=== PATIENT | female | born 1955 | race Caucasian/White ===

== ENCOUNTER 2024-11-21 13:03 | Outpatient (AMB) | payer MEDICARE, SELFPAY ==
--- NOTE | 2024-11-21 13:08 | MHC.OFFVIS ---
Vital Signs 11/21/24 13:14 Weight 138 lb BP 140/60 H Blood Pressure Location Rt brachial Position Sitting Pulse 67 Pulse Source Pulse Oximeter Pulse Oximetry (%) 95 Oxygen Delivery Method Room Air Intake Visit Reasons: ENP-Alzheimer's dementia Intake Note: Patient referred by [facility] dementia [employer] Sales Representative Required: No Accompanied by: Self / Same As Patient Allergies Penicillins Allergy (Severe, Verified 11/21/24 13:08) Anaphylaxis diazepam Allergy (Unknown, Verified 11/21/24 13:08) Unknown HPI Comments Details: 69y/o female comes for further evaluation of cognition.she was diagnosed with Dementia/ cognitive disorder 5 years ago and has been on medications.she saw at that time . she is currently on memantine 21mg and galantamine. she came alone for her appointment today . she is not sure when her memory issues started. 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 she had trouble remembering and focusing . she retired 4 years ago. she reports worsening of her short term memory issues. she misplaces things frequently, has trouble with names etc. she lives alone and is independant. 2 uncles and 1 cousin is diagnosed with dementia No h/o head injury she mccormack sh/o sleep apnea but her last home sleep tets 2 years ago was normal. [facility] Medical History (Updated 11/21/24 @ 13:44 by Shy Rivera MD) Cognitive disorder Ascending aorta dilatation Migraine with aura and without status migrainosus Anxiety Hyperlipidemia Alzheimer dementia Syncope Restless leg syndrome Vitamin B12 deficiency (dietary) anemia Depression OLIVIA (obstructive sleep apnea) DJD (degenerative joint disease) of cervical spine Urgency incontinence Insomnia Dyspnea Surgical History Hx of cardiac cath Family History Mother Diabetes Lung cancer Sister CAD (coronary artery disease) Sister Diabetes Brother Diabetes Brother Asthma Paternal Grandmother CAD (coronary artery disease) Social History Alcohol intake: current Patient Tobacco Use Status: Former Tobacco user Use of substances other than those prescribed or required for medical reasons: No Physical Exam Vital Signs: Last Vital Signs Pulse 67 11/21/24 13:14 BP 140/60 H 11/21/24 13:14 Pulse Ox 95 11/21/24 13:14 Oxygen Delivery Method Room Air 11/21/24 13:14 Const General: cooperative, healthy appearing, comfortable and no acute distress Nutritional Appearance: average body habitus Orientation/consciousness: patient oriented x3 Eyes Pupils: Equal, round and reactive pupils present Neuro Other: fidgety ? gen chorea General: patient oriented x3, gait normal, tone normal, moves all extremities and no focal motor deficits Cranial nerves: Yes Facial sensation intact/muscles of mastication intact, Yes Equal, round and reactive pupils present, Yes Bilaterally intact EOM present, Yes Nystagmus not present, Yes Normal facial strength present, Yes Midline tongue present and Yes Ability to bilaterally elevate shoulders present Cognition (Neuro): normal cognition Gait exam (Neuro): Antalgic gait present Motor exam (neuro): 5/5 motor strength present throughout and Normal motor muscle tone present throughout Deep tendon reflexes (DTR's): Right triceps reflex intensity grade: 1+, Left triceps reflex intensity grade: 1+, Rt Biceps (C5, C6): 1+, Left biceps reflex intensity grade: 1+, Right brachioradialis reflex intensity grade: 1+, Left brachioradialis reflex intensity grade: 1+, Right patellar reflex intensity grade: 1+ and Left patellar reflex intensity grade: 1+ Coordination: [id number] test normal Orientation What is the (year) (season) (date) (day) (month)?: year, season, date, day and month Where are we (state) (county) (town or city) (hospital) (floor)?: state, town or city, hospital/clinic and floor Registration Name of 3 unrelated objects clearly and slowly, then ask patient to repeat all 3 of them. (1st repeat determines score. Make sure they can repeat all three): object 1, object 2 and object 3 Attention & Calculation (CHOOSE ONE) Spell WORLD backwards (DLROW): 4 letters Recall Ask patient to repeat the 3 items from question #3.: object 1 and object 2 Language Show patient a wristwatch & ask what it is. Repeat for pencil.: watch and pencil Ask the patient to repeat the phrase 'No ifs, ands, or buts' after you.: correct Ask the patient to 'take a piece of paper with their right hand' 'fold paper in half' 'place paper on floor': take paper in right hand, fold paper in half and place paper on floor Print the sentence 'CLOSE YOUR EYES' on a piece. If patient actually closes eyes then score.: followed written direction Give patient a blank piece of paper & ask to write a sentence. Score if it contains a noun & verb.: sentence contains subject and verb Score Score: 26 Assessment & Plan Assessment & Plan (1) Cognitive disorder: Comment: early dementia vs Mild cognitive impairment Code(s): F09 - Unspecified mental disorder due to known physiological condition Category: Medical Plan Neuropsych testing - report for review Increase memantine XR 28 mg qd Galantamine 8mg qd will monitor neuro symptoms Coding Level of Care Code New Pt Level 4 (68553) Complex EM visit Add On G2211 Diagnoses Cognitive disorder F09
[2024-11-21 13:14] VITALS: BP 140/60; PULSE 67; O2SAT 95
--- OUTSIDE RECORDS SUMMARY | 2024-11-21 13:14 | XMS_ITS ---
Author Name [place] Organization Unknown Encounters Encounter Type Encounter Reason Primary Diagnosis Location Date Ambulatory Contact with and (suspected) exposure to covid-19 [facility] 2021 Care Team Organization Name Specialty Phone Email Start Date End Da te [facility] ALEXX HERNANDEZ Primary Care 04/05/2023 12/11/2023 [facility] Termed, PROVIDER Primary Care 09/30/202211/22 [facility] PCP,No Primary Care 2021 12/11/2023 [facility] NO PCP Primary Care 2021 2021
--- OUTSIDE RECORDS SUMMARY | 2024-11-21 13:15 | XMS_ITS | Clinical Summary ---
Author Organization [address] [facility] Address [address] [place] [address] Phone Care Team Providers Care Neurological Physiotherapist Name Role Phone Merari Mccray MD Primary Care Provider [phone] Allergies Active Allergy Reactions Criticality Noted Date Comments Diazepam Other 09/23/2019 LOC/syncope Penicillins Anaphylaxis High 02/14/2019 Medications cholecalciferol, vitamin D3, (D3-50 CHOLECALCIFEROL ORAL) Take 1 tablet by mouth 1 (one) time each day. Active aspirin 81 mg EC tablet Take 1 tablet (81 mg total) by mouth 1 (one) time each day. 08/07/19 22 Active calcium carbonate-vitamin D3 600 mg-5 mcg (200 unit) per tablet Take 1 tablet by mouth 1 (one) time each day. Active meloxicam (MOBIC) 7.5 mg tablet Take 1 tablet (7.5 mg total) by mouth 1 (one) time each day. 10/20/19 24 Active omega-3 acid ethyl esters (LOVAZA) 1 gram capsule Take 4 capsules (4 g total) by mouth 1 (one) time each day. Active traZODone (DESYREL) 100 mg tabletIndications:A nxiety,Depression, unspecified depression type Take 1 tablet (100 mg total) by mouth at bedtime. 90 tablet 2 03/15/20 24 Active melatonin 10 mg capsule Take 1 capsule (10 mg total) by mouth at bedtime. 90 capsule 2 03/15/20 24 Active diazePAM (VALIUM) 2 mg tabletIndications:A nxiety Take 1 tablet (2 mg total) by mouth 3 (three) times a day if needed for anxiety, sedation or muscle spasms. Max Daily Amount: 6 mg 6 tablet 03/15/20 24 Active Additional Information Patient not taking.Reported on 08/08/2024 umeclidinium-vilant Antonio (Anoro Ellipta) 62.5-25 mcg/actuation inhaler Inhale 1 puff by mouth 1 (one) time each day. 1 each 12 08/14/19 25 026 Active furosemide (LASIX) 20 mg tablet TAKE 1 TABLET BY MOUTH 1 (ONE) TIME EACH DAY IF NEEDED FOR LEG SWELLING 90 tablet 09/12/19 25 Active wmaduof-ZTGX-izh-va ler-hops-lm [id number] mg capsule 20 mg. 10/06/19 19 Active albuterol HFA (PROAIR HFA ; PROVENTIL HFA ; VENTOLIN HFA) 90 mcg/actuation inhaler Inhale 2 puffs by mouth. 10/25/19 24 Active aspirin 81 mg tablet Take 81 mg by mouth. 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 90 capsule 2 09/20/19 25 Active magnesium oxide 250 mg magnesium tablet Take 1 tablet (250 mg total) by mouth 2 (two) times a day. 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 90 capsule 2 09/20/19 25 Active gabapentin (NEURONTIN) 100 mg capsuleIndications: Restless leg syndrome Take 2 capsules (200 mg total) by mouth 2 (two) times a day. 360 capsule 2 09/20/19 25 Active buPROPion XL (WELLBUTRIN XL) 150 mg 24 hr tabletIndications:D epression, unspecified depression type,Anxiety Take 1 tablet (150 mg total) by mouth 1 (one) time each day in the morning. 90 tablet 2 09/20/19 25 Active atorvastatin (LIPITOR) 20 mg tabletIndications:H yperlipidemia, unspecified hyperlipidemia type Take 1 tablet (20 mg total) by mouth 1 (one) time each day. 90 tablet 2 09/20/19 25 Active Active Problems Problem Noted Date Diagnosed Date Anxiety 02/08/2024 Hyperlipidemia 02/08/2024 Overview (02/08/2024): Last Assessment & Plan: Continue current atorvastatin 20 mg at bedtime Assessment & Plan (08/08/2024 10:07 AM EDT): Utilizing atorvastatin 20 mg p.o. daily. Migraine with aura 02/08/2024 Aortic insufficiency 09/22/2023 Overview (02/08/2024): See echocardiogram under ascending aortic aneurysm section Last Assessment & Plan: Exam inconsistent with significant aortic insufficiency. And recent echo showed only mild to moderate insufficiency. Will do full surveillance echoes every 4 to 5 years or with change in murmur or exam to evaluate AI but every 2 to 3 years we will assess the ascending aorta. Assessment & Plan (08/08/2024 10:07 AM EDT): Patient scheduled to have echocardiogram on August 2024. Dizziness 09/22/2023 Overview (02/08/2024): Last Assessment & Plan: Sounds more like vertigo or age-related gait instability than true lightheadedness. Continue to monitor for worsening symptoms. Consider use of ambulatory assistance aids. Degenerative TFCC tear, right 08/16/2023 Extensor carpi ulnaris tendinitis 08/16/2023 Dyspnea on exertion 11/07/2022 Overview (02/08/2024): - In follow-up, she has had a recent echocardiogram in September 2020 (based on my independent review of the images) showing upper normal left ventricular wall thickness, normal LV cavity size and systolic function, normal regional wall motion with ejection fraction of 60 to 65%, normal RV size and systolic function, mild left atrial enlargement, mild aortic insufficiency with a trileaflet aortic valve, mild MR, mild TR, normal pulmonary artery systolic pressure of 31 mmHg, dilated ascending aorta at 4.3 cm, aortic root at 3.8 cm-compared with echo from 09/02/2019, findings in my opinion are stable - She also ended up having an exercise stress test which was inconclusive because she only achieved 75% of max predicted heart rate on 05/25/2021 - She had a follow-up pharmacologic nuclear stress test on 07/07/2021 which showed normal perfusion but elevated TID ratio of 1.34 and evidence of three-vessel coronary calcification on low-dose CT images for attenuation correction -Cardiac cath in July 2021 showed normal LMCA with mild luminal irregularities of the LAD, left circumflex, and RCA, given these findings it indicates that the stress test was a false positive Last Assessment & Plan: At this point, given findings on recent CT scan, PFTs, and improvement in symptoms with albuterol, I suspect her symptoms are more likely pulmonary in nature given her prior smoking history. Furthermore she has had an extensive cardiac workup that has been unyielding. That said, she is going to be seeing her crime scene analyst soon. I recommended she mention to him that she is using her rescue inhaler frequently. There may be a bit of dementia and anxiety at play to however. This will be difficult to parse out. Assessment & Plan (08/08/2024 10:07 AM EDT): Patient reports that this chronic, has not been worsening. Is working with her crime scene analyst. Continue on current medication regiment. I did speak to patient about continuing to exercise and strengthening her muscles. Orders: ECG 12 lead Ascending aorta dilation ([facility] V24) 0 Overview (02/08/2024): -Most recent echocardiogram in January 2023 showing normal biventricular size and systolic function, normal left ventricular regional wall motion with an ejection fraction of 60 to 65%, trileaflet aortic valve with mild to moderate aortic insufficiency but no aortic stenosis, dilated ascending aorta at 4.3 cm and normal aortic root size-compared with prior echo from 2020, the AI was slightly more prominent on today's study but all other findings are unchanged including aortic size - CT of the chest without contrast in September 2021 showed the ascending aorta at 4.4 x 4.1 cm, mild centrilobular and paraseptal emphysema, prominent bilateral epicardial fat pads - Abdominal aortic ultrasound performed on 11/25/2022 did not show any evidence of abdominal aortic aneurysm but did show mild to moderate atherosclerotic plaquing of the abdominal aortic wall. Bilateral common iliac arteries are normal in size and flow velocity. Last Assessment & Plan: No recent growth on echocardiogram last year. At this point, we will space out surveillance imaging to every 2 years. Assessment & Plan (08/08/2024 10:07 AM EDT): Patient is scheduled to have an echocardiogram in August 2024. Orders: ECG 12 lead Insomnia 09/23/2019 Urgency incontinence 09/23/2019 DJD (degenerative joint disease) of cervical spi ne 07/15/2019 Depression 03/12/2019 OLIVIA (obstructive sleep apnea) 03/12/2019 Overview (02/08/2024): 10/2018 Heavy snoring; Did not tolerate CPAP Restless leg syndrome 03/12/2019 Vitamin B 12 deficiency 03/12/2019 Alzheimer's dementia (CMS/[facility] V24, CMS/HCC V28) 02/14/2019 Overview (02/08/2024): 4-5 months getting worse. Recent memory is getting worse Only remembers every day stuff Vasovagal syncope 02/14/2019 Encounters Date Type Department Care Team Description 10/31/2024 Telephone [facility] - [address] [facility] [address] [place] [address] Gary Harmon NP Results (Echo results ) 09/19/2024 1:00 PM EDT Office Visit Internal Medicine - [address] [place] [address] Merari Mccray MD Hyperlipidemia, unspecified hyperlipidemia type (Primary Dx); Depression, unspecified depression type; Anxiety; Ascending aorta dilation (CMS/[facility] V24); Dyspnea on exertion; Osteoarthritis of cervical spine, unspecified spinal osteoarthritis complication status; 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 ([facility] V24, [facility] V28); Restless leg syndrome; Rash 09/19/2024 Telephone Internal Medicine - [address] [place] [address] Monica Fung MA 09/17/2024 1:30 PM EDT Ancillary Procedure [facility] - [address] [place] [address] Dyspnea on exertion from Last 3 Months Immunizations Name Administration Dates Next Due Influenza trivalent, 0.5mL ( Fluad) 65yo and older 03/15/2024,01/03/2023,02/21/2022 Moderna SARS-CoV-2 COVID-19, mRNA, LNP-S, preservative free 02/21/2022,02/27/2021 Pneumococcal conjugate 20 va lent (Prevnar 20, PCV 20) 2mo and older 03/31/2023 RSV, bivalent, protein subun it RSVpreF, 0.5mL, Preservative Free (ABRYSVO) 60yo and older or 32 through 36 wks of 06/01/2023 Td Tetanus diptheria (Tdvax) 7yo and older 03/31 Zoster recombinant (Shingrix ) 19yo and older 11/25/2023,06/01/2023 Surgical History Surgery Date Site/Laterality Comments CATARACT EXTRACTION 02/12/2014 PROCEDURE: HISTORICAL CATARACT REMOVAL; COMMENT: and vitrectomy OTHER SURGICAL HISTORY PROCEDURE: ---- HEMORRHOIDS ----; COMMENT: ??procedure HERNIA REPAIR 2016 PROCEDURE: HISTORICAL HERNIA REPAIR/ING COLONOSCOPY 08/09/2018 PROCEDURE: HISTORICAL COLONOSCOPY; COMMENT: 13mm polyp in rectum-resected; diverticula; repeat 3 yrs UPPER GASTROINTESTINAL ENDOSCOPY 11/15/2018 PROCEDURE: UPPER GI ENDOSCOPY/EXAM; COMMENT: normal HYSTERECTOMY PROCEDURE: HISTORICAL TOTAL HYSTERECTOMY WITH BSO Medical History Medical History Date Comments Hyperlipidemia DX:Hyperlipidemi a Anxiety DX:Anxiety Alzheimer's dementia ([facility]/ C V24, [facility] V28) 02/14/2019 DX:Alzheimer's dementia (HCC ); COMMENT: 4-5 months getting worse. Recent memory is getting worse Only remembers every day stuff Migraine with aura DX:Migraine w ith aura Vasovagal syncope 02/14/2019 DX:Vasovagal s yncope OLIVIA (obstructive sleep apnea) 03/12/2019 DX :OLIVIA (obstructive sleep apnea); COMMENT: 10/2018 Heavy snoring; Did not tolerate CPAP Depression 03/12/2019 DX:Depression Vitamin B 12 deficiency 03/12/2019 DX:Vitam in B 12 deficiency Restless leg syndrome 03/12/2019 DX:Restles s leg syndrome Bronchitis DX:Bronchitis COPD with asthma ([facility] V2 4, [facility] V28) 11/2021 DX:COPD with asthma ([facility]); C OMMENT: Dr. Vernon Family History Medical History Relation Name Comments Diabetes Brother 1 Asthma Brother 2 No Known Problems Brother 3 No Known Problems Brother 4 No Known Problems Brother 5 No Known Problems Daughter Other: sudden Father in his 7 0s, at home, didn't feel good, went upstairs and dropped , possible aneurysm Diabetes Mother Lung cancer Mother Rheum arthritis Mother Coronary artery disease Other Diabetes Other Hypertension Other Coronary artery disease Paternal Grandmother of mi in her 70s Coronary artery disease Sister 1 Diabetes Sister 1 Arthritis Sister 2 Diabetes Sister 2 No Known Problems Son Breast cancer Neg Hx Relation Name Status Comments Brother 1 Alive Brother 2 Alive Brother 3 Alive Brother 4 Alive Brother 5 Alive Daughter Alive Father Mother Other Paternal Grandmother Sister 1 Sister 2 Alive Son Alive Social History Tobacco Use Types Packs/Day Years Used Date Smoking Tobacco: Former Cigarettes Q uit: 04/24/2004 Smokeless Tobacco: Never Tobacco Cessation:Counseling Given: Not Answered Alcohol Use Standard Drinks/Week Comments Yes 0 (1 standard drink = 0.6 oz pur e alcohol) Comments Unknown Sex and Gender Information Value Date Recorded Sex Assigned at Not on file Legal Sex Female 12:03 PM EST Gender Identity Not on file Sexual Orientation Not on file Obstetrics History Last Filed Vital Signs Vital Sign Reading Time Taken Comments Blood Pressure 130/63 09/19/2024 12:59 PM EDT Pulse 63 09/19/2024 12:59 PM EDT Temperature 36.7 C (98.1 F) 09/19/2024 12:59 PM EDT Respiratory Rate 20 03/25/2024 3:08 PM EST Oxygen Saturation 98% 08/08/2024 9:04 AM EDT Inhaled Oxygen Concentration - - Weight 63.4 kg (139 lb 12.8 oz) 025 12:59 PM EDT Height 160 cm (5' 3 ) 09/17/2024 2:25 PM EDT Body Mass Index 24.76 09/17/2024 2:25 PM EDT Plan of Treatment Upcoming Encounters Date Type Department Care Team (Late st Contact Info) Description 01/23/2025 1:00 PM EDT Office Visit Internal Medicine - [facility] [address] [place] [address] Merari Mccray MD [address] [place], [place] 02/21/2025 10:40 AM EDT Office Visit [facility] - [facility] [address] [facility] [address] [place] [phone] Gary Harmon NP [address] [place] [address] 03/28/2025 2:00 PM EST Office Visit Pulmonolgy - [place] [address] [facility] [address] [place] [id number] Abhijit Vernon MD 175 [facility] [address] [place] [address] Health Maintenance Due Date Last Done Comments Hepatitis C Screening 04/02/2022 Social Influencers of Health Screening 04/02/2022 COVID-19 Vaccine ( season) 2023 02/10/2023, 02/21/2022, 02/27/2021, Additional history exists Depression Screening 04/24/2024 03/14/2024, 11/17/19 24 Medicare Annual Wellness Visit 11/16/2024 11/17/2023 Influenza Vaccine (#1) 2024 , 02/10/2023, 01/03/2023, Additional history exists Falls Risk Assessment 03/15/2025 03/15/2024 Breast Cancer Screening 06/28/2025 06/29/19 24, 06/16/2022, 06/08/2021, Additional history exists Colorectal Cancer Screening: Colonoscopy 08/09/2028 08/09/2018 Cholesterol Screening (Lipid Panel) 09/19/2029 09/19/2024, 04/04/2023 Osteoporosis Screening (Bone Density Screening) 07/03/2031 07/02/2021 DTaP,Tdap,and Td Vaccines (2 - Td or Tdap) 03/31/2033 03/31/2023 Pneumococcal Vaccine: 50+ Years Completed 03/31/2023 RSV Immunization Adult Patients Completed 06/01/2023 Zoster Vaccines Completed 11/25/2023, 06/01/2023 HIB Vaccines Aged Out No longer eligi ble based on patient's age to complete this topic HPV Vaccines Aged Out No longer eligi ble based on patient's age to complete this topic Hepatitis A Vaccines Aged Out No long er eligible based on patient's age to complete this topic Hepatitis B Vaccines Aged Out No long er eligible based on patient's age to complete this topic IPV Vaccines Aged Out No longer eligi ble based on patient's age to complete this topic MMR Vaccines Aged Out No longer eligi ble based on patient's age to complete this topic Meningococcal ACWY Vaccine Aged Out N o longer eligible based on patient's age to complete this topic Meningococcal B Vaccine Aged Out No l onger eligible based on patient's age to complete this topic RSV Immunization Patients Under 20 months Aged Out No longer eligible based on patient's age to complete this topic Varicella Vaccines Aged Out No longer eligible based on patient's age to complete this topic Procedures Procedure Name Priority Date/Time Associated Diagnosis Comments COMPREHENSIVE METABOLIC PANEL Routine 09/19/2024 2:07 PM EDT Hyperlipidemia, unspecified hyperlipidemia type Depression, unspecified depression type Anxiety LIPID PANEL WITH REFLEX TO DIRECT LDL Routine 09/19/2024 2:07 PM EDT Hyperlipidemia, unspecified hyperlipidemia type TRANSTHORACIC ECHOCARDIOGRAM (TTE) COMPLETE Routine 09/17/2024 2:25 PM EDT Dyspnea on exertion DEPRESSION SCREENING Routine 11/17/2023 AMBER SCREENING DIGITAL Routine 06/29/2023 6:11 PM EST Encounter for screening mammogram for malignant neoplasm of breast DXA BONE DENSITY STUDY 1+ SITS AXIAL SKEL Routine 07/02/2021 11:07 AM EST Other specified disorders of bone density and structure, unspecified site COLONOSCOPY Routine 08/09/2018 from Last 3 Months or Most Recently Relevant to Health Maintenance Results * Lipid panel with reflex to direct LDL (09/19/2024 2:07 PM EDT) Cholesterol 166 0 - 200 mg/dL LAB CHEMISTRY METHOD 09/19/2024 7:02 PM EDT [facility] Triglycerides 49 0 - 150 mg/dL LAB CHEMISTRY METHOD 09/19/2024 7:02 PM EDT [facility] HDL 92 >=40 mg/dL LAB CHEMISTRY METHOD 09/19/2024 7:02 PM EDT [facility] LDL Calculated 64 0 - 100 mg/dL LAB CHEMISTRY METHOD 09/19/2024 7:02 PM EDT [facility] VLDL Cholesterol Mehran 9.8 mg/dL LAB CHEMISTRY METHOD 09/19/2024 7:02 PM EDT [facility] Non HDL Chol. (LDL+VLDL) 74 <145 mg/dL LAB CHEMISTRY METHOD 09/19/2024 7:02 PM EDT [facility] Chol/HDL Ratio 1.8 0.0 - 4.4 LAB CHEMISTRY METHOD 09/19/2024 7:02 PM EDT [facility] Blood Venous blood specimen / Unknown Venipuncture / Unknown 09/19/2024 2:07 PM EDT 09/19/2024 2:07 PM EDT us Merari Mccray MD LAB BLOOD ORDERABLES Final Res ult [facility] [address] [place] [address], [place] [phone] * Comprehensive metabolic panel (09/19/2024 2:07 PM EDT) Sodium 138 133 - 145 mmol/L LAB CHEMISTRY METHOD 09/19/2024 7:02 PM [facility] Potassium 4.7 3.5 - 5.5 mmol/L LAB CHEMISTRY METHOD 09/19/2024 7:02 PM [facility] Chloride 107 96 - 110 mmol/L LAB CHEMISTRY METHOD 09/19/2024 7:02 PM [facility] CO2 27 21 - 32 mmol/L LAB CHEMISTRY METHOD 09/19/2024 7:02 PM [facility] Anion Gap 4 3 - 11 LAB CHEMISTRY METHOD 09/19/2024 7:02 PM [facility] Glucose 95 70 - 100 mg/dL LAB CHEMISTRY METHOD 09/19/2024 7:02 PM [facility] BUN 14 5 - 25 mg/dL LAB CHEMISTRY METHOD 09/19/2024 7:02 PM [facility] Creatinine 0.89 0.50 - 1.10 mg/dL LAB CHEMISTRY METHOD 09/19/2024 7:02 PM [facility] eGFR 69 >=60 mL/min/1. 73m2 LAB CHEMISTRY METHOD 09/19/2024 7:02 PM [facility] Comment:Calculation based on the Chronic Kidney Disease Epidemiology Collaboration (CKD-EPI) equation refit without adjustment for race. BUN/Creatinine Ratio 15.7 LAB CHEMISTRY METHOD 09/19/2024 7:02 PM [facility] Calcium 9.4 8.5 - 10.5 mg/dL LAB CHEMISTRY METHOD 09/19/2024 7:02 PM [facility] AST (SGOT) 23 10 - 42 unit/L LAB CHEMISTRY METHOD 09/19/2024 7:02 PM EDT [facility] ALT (SGPT) 28 10 - 60 unit/L LAB CHEMISTRY METHOD 09/19/2024 7:02 PM EDT [facility] Alkaline Phosphatase 75 42 - 121 unit/L LAB CHEMISTRY METHOD 09/19/2024 7:02 PM EDT [facility] Total Protein 6.4 6.0 - 8.0 g/dL LAB CHEMISTRY METHOD 09/19/2024 7:02 PM EDT [facility] Albumin 3.3 3.2 - 5.0 g/dL LAB CHEMISTRY METHOD 09/19/2024 7:02 PM EDT [facility] Total Bilirubin 0.4 0.0 - 1.4 mg/dL LAB CHEMISTRY METHOD 09/19/2024 7:02 PM EDT [facility] Blood Venous blood specimen / Unknown Venipuncture / Unknown 09/19/2024 2:07 PM EDT 09/19/2024 2:07 PM EDT us Merari Mccray MD LAB BLOOD ORDERABLES Final Res ult [facility] [address] [place] [address], [place] [phone] * (ABNORMAL) TRANSTHORACIC ECHOCARDIOGRAM (TTE) COMPLETE (09/17/2024 2:25 PM EDT) Left Atrium Minor [place] 5.5 cm CV PACS Left Atrium Major [place] 5.7 cm CV PACS LA Area Sys (A2C) 18 cm2 CV PACS LA Area Sys (A4C) 19 cm2 CV PACS LA Volume (BP) 50 mL CV PACS RA Area 12.5 cm2 CV PACS RA 2D Volume 24 mL CV PACS AV Regurgitation PHT 428 ms CV PACS AR Max Velocity 4.7 m/s CV PACS AV Peak Derek 1.6 m/s CV PACS AV Peak Gradient 10 mmHg CV PACS AV Mean Gradient 5 mmHg CV PACS Ao VTI 34.0 cm CV PACS AV Area Continuity Equation 2.7 cm2 CV PACS AV Area Peak Velocity 2.3 cm2 CV PACS Aortic Arch 3.0 cm CV PACS Ascending Aorta 4.2 cm CV PACS Aortic Sinus Valsalva 3.7 cm CV PACS IVC Proximal 1.4 cm CV PACS IVSD 0.9 0.6 - 0.9 cm CV PACS LVIDD 4.2 3.8 - 5.2 cm CV PACS LVIDS 2.6 2.2 - 3.5 cm CV PACS LVOT Diameter 2.0 cm CV PACS LVOT Mean Derek 0.8 m/s CV PACS LVOT Mean Grad 3 mmHg CV PACS LVOT Peak VTI 29.4 cm CV PACS LVOT Peak Derek 1.2 m/s CV PACS LVOT Peak Gradient 5 mmHg CV PACS LVPWD 1.0(A) 0.6 - 0.9 cm CV PACS MV E' Tissue Velocity Lateral 9 cm/s CV PACS MV E' Tissue Velocity Septal 8 cm/s CV PACS LVOT Area 3.1 cm2 CV PACS LVOT Stroke Volume 92 mL CV PACS MV Deceleration Harris 2.1 m/s2 CV PACS E Wave Deceleration Time 292(A) 119 - 242 ms CV PACS MV PHT 85 ms CV PACS MV Peak A Derek 0.80 m/s CV PACS MV Peak E Derek 0.60 m/s CV PACS MV Area PHT 2.6 cm2 CV PACS PV Acceleration Time 77 ms CV PACS RV Diastolic Basal Dimension 2.9 2.5 - 4.1 cm CV PACS RV S' 15 cm/s CV PACS TAPSE 23 mm CV PACS TR Peak Velocity 2.40 m/s CV PACS TR Peak Gradient 22 mmHg CV PACS E/E' Ratio Septal 8 CV PACS E/E' Ratio Averaged 7 CV PACS Relative Wall Thickness ratio 0.47(A) 0.22 - 0.42 CV PACS LVOT:AV VTI Index 0.87 CV PACS FS 38 % CV PACS LV Mass 2D 127 66 - 150 g CV PACS LVOT flow 251 mL/s CV PACS AV Velocity Ratio 0.73 CV PACS E/A Ratio 0.8 0.8 - 2.0 CV PACS E/E' Ratio Lateral 7 CV PACS BSA 1.66 m2 CV PACS LA Volume Index (BP) 30 mL/m2 CV PACS LVIDD Index 2.55 cm/m2 CV PACS LVIDS Index 1.58 cm/m2 CV PACS LV Mass Index 2D 77 44 - 88 g/m2 CV PACS LVOT Stroke Index 0 mL/m2 CV PACS RA 2D Volume Index 15 15 - 27 mL/m2 CV PACS DELFIN Index (VTI) 1.65 cm2/m2 CV PACS DELFIN Index (Pk Derek) 1.39 cm2/m2 CV PACS Ascending Aorta Index 2.55 cm/m2 CV PACS Right Ventricular Peak Systolic Pressure 26 mmHg CV PACS Est. RA Pressure 3 mmHg CV PACS RV Free Wall Peak S' 15 cm/s CV PACS RA Major [place] 5.3 cm CV PACS RA Major [place] Index 3.2(A) 2.2 - 2.8 cm/m2 CV PACS AV Area 2D 2.3 cm2 CV PACS DELFIN Index (2D) 1.39 cm2/m2 CV PACS Inferior Vena Cava Diameter At Expiration 1.4 cm CV PACS IVC Expiration Index 0.85 cm/m2 CV PACS AV Area Index 1.4 CV PACS Anatomical Region Laterality Modality Ultrasound Narrative 10/10/2024 5:13 PM EDT Normal biventricular size and systolic function. Normal left ventricular regional wall motion with an ejection fraction of 60 to 65%. Normal left ventricular diastolic function. Normal pulmonary artery systolic pressure. Dilated ascending aorta at 4.2 cm. Mild to moderate aortic insufficiency. No aortic stenosis. Trileaflet aortic valve. The ascending aorta is dilated (4.2 cm). Compared with prior echocardiogram report from 02/09/2023, findings are likely stable. Minor differences in measurement reported of the ascending aorta are likely within the error of the test. Left Ventricle Left ventricle cavity size is normal. Left ventricular wall thickness at upper limits of normal. Systolic function is normal with an ejection fraction of 60-65%. There are no regional LV wall motion abnormalities. There is no diastolic dysfunction and normal left atrial pressure. Right Ventricle Right ventricle cavity appears normal. Systolic function is normal. Left Atrium Left atrium cavity size is normal. Right Atrium Right atrium cavity is normal. IVC/SVC RA pressures is estimated to be 3 mmHg (IVC diameter <21 mm and decreases >50% during inspiration). Mitral Valve The leaflets are mildly thickened. There is annular calcification. There is trace regurgitation. There is no evidence of mitral valve stenosis. Tricuspid Valve Tricuspid valve structure is normal. There is mild regurgitation. There is no evidence of tricuspid valve stenosis. The right ventricular systolic pressure is normal. The RVSP is estimated at 26 mmHg. Aortic Valve The aortic valve is trileaflet. There is mild to moderate regurgitation. There is no evidence of aortic valve stenosis. Pulmonic Valve Pulmonic valve structure is normal. No significant pulmonic valve regurgitation. Ascending Aorta The ascending aorta is dilated (4.2 cm). The ascending aorta and transverse aorta are likely upper normal in size for age and body surface area. Pericardium Pericardium appears normal. There is no pericardial effusion. Study Details Overall the study quality was adequate. Rhonda Kowalski MD CV ECHO PROCEDURES Final Result * Depression Screening (11/17/2023) Depression Screening Abstracted Historical Provider HEALTH MAINTENANCE Final Result * AMBER SCREENING DIGITAL (06/29/2023 6:11 PM EST) Anatomical Region Laterality Modality Mammography 06/29/2023 1:38 PM EST Narrative 06/29/2023 6:11 PM EST [facility] Diagnostic Imaging Department [address] [place] [address] Patient: JUAN MANUEL CERDA/Age/Sex: 1955 - 68 - F Unit#: [id number] Location/Status: SPDIMAM/REG CLI Mnemonic[facility] Order[facility] Physician: RICCI SHEETS DO [facility] Screening Digital - 06/29/23 - 1401 Report Status:Signed EXAM: [facility] Screening Digital EXAM DATE AND TIME: 06/29/2023 2:01 PM HISTORY: Screening. Personal history of endometrial carcinoma. COMPARISON: 06/16/22, 06/08/21, 06/01/20 TECHNIQUE: Bilateral digital breast tomosynthesis was performed in the CC and MLO projections. Computer aided detection with [employer] 3D 3.1 was employed. TISSUE DENSITY: a. The breasts are almost entirely fatty. FINDINGS: No suspicious masses, grouped microcalcifications, or areas of architectural distortion are seen. Vascular calcification is present. The skin is unremarkable. IMPRESSION: Stable mammographic appearance of the breasts. No evidence of malignancy is seen. A negative mammogram in the presence of a clinically suspicious palpable abnormality does not preclude the possibility of malignancy or alter the indications for biopsy. BI-RADS: Category 2: Benign RECOMMENDATION(S): 1: Routine screening mammogram BILATERAL in 1 year. Dictating Physician: ZAKIA SMILEY MD Electronically Signed by: ZAKIA SMILEY MD Dic Date/Time: 06/29/231809 Sign date/Time: 06/29/231810 Procedure Note Zakia Smiley MD - 12/11/2023 [facility] Diagnostic Imaging Department [address] [place] [address] Patient: ANGELAJUAN MANUEL Hearn./Age/Sex: 1955 - 68 - F Unit#: [id number] Location/Status: [facility] CLI Mnemonic/Ordering Site: [facility] Ordering Physician: RICCI SHEETS DO [facility] Screening Digital - 06/29/23 - 1401 Report Status:Signed EXAM: [facility] Screening Digital EXAM DATE AND TIME: 06/29/2023 2:01 PM HISTORY: Screening. Personal history of endometrial carcinoma. COMPARISON: 06/16/22, 06/08/21, 06/01/20 TECHNIQUE: Bilateral digital breast tomosynthesis was performed in the CCand MLO projections. Computer aided detection with [employer] 3D 3.1was employed. TISSUE DENSITY: a. The breasts are almost entirely fatty. FINDINGS: No suspicious masses, grouped microcalcifications, or areas ofarchitectural distortion are seen. Vascular calcification is present. The skin is unremarkable. IMPRESSION: Stable mammographic appearance of the breasts. No evidence of malignancyis seen. A negative mammogram in the presence of a clinically suspicious palpable abnormality does not preclude the possibility of malignancy or alter the indications for biopsy. BI-RADS: Category 2: Benign RECOMMENDATION(S): 1: Routine screening mammogram BILATERAL in 1 year. Dictating Physician: ZAKIA SMILEY MD Electronically Signed by: ZAKIA SMILEY MD Dic Date/Time: 06/29/231809 Sign date/Time: 06/29/231810 Ricci Sheets DO IMG BI PROCEDURES Final Result * DXA BONE DENSITY STUDY 1+ SITS AXIAL SKEL (07/02/2021 11:07 AM EST) Anatomical Region Laterality Modality Bone Densitometr y 05/28/2021 10:5 0 AM EST Narrative 07/02/2021 7:11 PM EST BONE DENSITY SCAN (DEXA) FINDINGS: Lumbar Spine T-score is 0.6. (SD relative to 20-29 y/o adult) Z-score is 2.6. (SD relative to age matched peers) This is considered normal by WHO criteria. Left Hip T-score is -0.5. Z-score is 1.2. This is considered normal by WHO criteria. Comparison: Distal None. IMPRESSION: IMPRESSION: Normal bone mineral density by WHO criteria. [facility] Department of Internal Medicine recommends using National Osteoporosis Foundation (NOF) guidelines in treatment decisions related to osteoporosis. NOF guidelines suggest considering treatment for postmenopausal women and men aged 50 or older presenting with the following: History of hip or vertebral fracture. T-score = -2.5 (DXA) at the femoral neck, total hip, or spine, after appropriate evaluation to exclude secondary causes. Low bone mass (T-score between -1.0 and -2.5 at the femoral neck or spine) AND a 10-year probability of a hip fracture = 3% OR a 10-year probability of a major osteoporosis-related fracture = 20% based on the [place]-adapted WHO algorithm Please note that all treatment decisions require clinical judgment and consideration of individual patient factors, including patient preferences, co-morbidities, previous drug use, risk factors not captured in the FRAX model (e.g., frailty, falls, vitamin D deficiency, increased bone turnover, interval significant decline in bone density) and possible under- or over-estimation of fracture risk by FRAX. Optional alternative screening schedule based on neri Joyner., [facility] May 12, 2011 for patients with osteopenia (based on hip BMD T-score) is as follows: * advanced osteopenia (T scores -2.00 to -2.49), BMD testing every year * moderate osteopenia (T scores -1.50 to -1.99), BMD testing every 5 years mild osteopenia or normal BMD (T scores -1.50 and higher), BMD testing every 15 years Procedure Note Tarah Vieyra MD - 04/12/2022 BONE DENSITY SCAN (DEXA) FINDINGS: Lumbar Spine T-score is 0.6. (SD relative to 20-29 y/o adult) Z-score is 2.6. (SD relative to age matched peers) This is considered normal by WHO criteria. Left Hip T-score is -0.5. Z-score is 1.2. This is considered normal by WHO criteria. Comparison: Distal None. IMPRESSION: IMPRESSION: Normal bone mineral density by WHO criteria. [facility] Department of Internal Medicine recommendsusing National Osteoporosis Foundation (NOF) guidelines in treatment decisions related toosteoporosis. NOF guidelines suggest considering treatment for postmenopausal women and menaged 50 or older presenting with the following: History of hip or vertebral fracture. T-score = -2.5 (DXA) at the femoral neck, total hip, or spine, afterappropriate evaluation to exclude secondary causes. Low bone mass (T-score between -1.0 and -2.5 at the femoral neck or spine)AND a 10-year probability of a hip fracture = 3% OR a 10-year probability of a majorosteoporosis-related fracture = 20% based on the [place]-adapted WHO algorithm Please note that all treatment decisions require clinical judgment andconsideration of individual patient factors, including patient preferences, co- morbidities,previous drug use, risk factors not captured in the FRAX model (e.g., frailty, falls, vitaminD deficiency, increased bone turnover, interval significant decline in bone density) andpossible under- or over-estimation of fracture risk by FRAX. Optional alternative screening schedule based on neri Joyner., NEJMJanuary 2011 for patients with osteopenia (based on hip BMD T-score) is as follows: * advanced osteopenia (T scores -2.00 to -2.49), BMD testing every year * moderate osteopenia (T scores -1.50 to -1.99), BMD testing every 5years mild osteopenia or normal BMD (T scores -1.50 and higher), BMD testingevery 15 years Ricci Sheets DO IMG DXA PROCEDURES Final Result * Colonoscopy (08/09/2018) Colonoscopy No interpretation , abstracted Anatomical Region Laterality Modality Other Historical Provider HEALTH MAINTENANCE Final Result from Last 3 Months or Most Recently Relevant to Health Maintenance Insurance MEDICARE [facility] Care Teams Neurological Physiotherapist Relationship Specialty Start Date End Date Merari Mccray MD [address] [place] [phone] PCP - General Internal Medicine 06/11/24
--- OUTSIDE RECORDS SUMMARY | 2024-11-21 13:15 | XMS_ITS | Clinical Summary ---
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 Role Phone Pcp, No Primary Care Provider Unavailabl e Social History Tobacco Use Types Packs/Day Years Used Date Smoking Tobacco: Never Assessed Comments Unknown Sex and Gender Information Value Date Recorded Sex Assigned at Not on file Legal Sex Female 9:22 AM EDT Gender Identity Not on file Sexual Orientation Not on file Last Filed Vital Signs Vital Sign Reading Time Taken Comments Blood Pressure 128/73 2021 10:10 AM EDT Pulse 80 2021 10:10 AM EDT Temperature 36.6 C (97.8 F) 2021 10:10 AM EDT Respiratory Rate - - Oxygen Saturation 98% 2021 10:10 AM EDT Inhaled Oxygen Concentration - - Weight - - Height - - Body Mass Index - - Plan of Treatment Health Maintenance Due Date Last Done Comments Hepatitis C Virus Screening 1955 DTaP/Tdap/Td Vaccines (1 - Tdap) 02/23/1972 Mammogram 1993 Colonoscopy 1998 Pneumococcal Vaccines 50+ (1 of 1 - PCV) 2003 Zoster (Shingles) Vaccine (1 of 2) 2003 DXA Bone Density (Females,Ages 65 and older) 2018 COVID-19 Vaccine (3 - 2023-2 5 season) 2023 08/08/2020, 07/11/2020 Influenza Vaccine 11/22/2024 RSV Vaccine 60 years and older and Patients (1 - 1-dose 75+ series) 02/23/2028 Hepatitis B Vaccines Aged Out No long er eligible based on patient's age to complete this topic Insurance MEDICARE PART A & B Care Teams Paint Roller Assembler Relationship Specialty Start Date End Date Pcp, No PCP - General General Medicine 02/22/21
== END 2024-11-21 13:55 | disposition home or self-care (01) ==
PROVIDERS: PCP Student in an Organized Health Care Education/Training Program; Visit Provider Psychiatry & Neurology Neurology
DX: G31.84 Mild cognitive impairment of uncertain or unknown etiology (principal)
CPT/HCPCS: 99204; G2211

== ENCOUNTER → 2024-11-21 13:03 | Outpatient (BNVA) | payer MEDICARE, SELFPAY | PROVIDERS: PCP Student in an Organized Health Care Education/Training Program; Visit Provider Psychiatry & Neurology Neurology | DX: F09 Unspecified mental disorder due to known physiological condition (principal); Z79.899 Other long term (current) drug therapy | CPT/HCPCS: 99202 ==